=== PATIENT | female | born 1980 | race Two or more races ===

== ENCOUNTER → 2016-06-27 | Outpatient (CLI) | payer MEDICAID | LOC: FIMAGING 13:49 | DX: N63 Unspecified lump in breast (principal) ==

== ENCOUNTER 2016-12-28 04:23 | Observation (INO) | payer MEDICAID ==
--- NOTE | 2016-12-28 07:09 | SOAPPROG ---
SOAP Progress Note Assessment/Plan: Assessment: IUP at 32 + wks LOF, and decreased FM Plan: Reactive NST and amnisure neg, feeling GFM at hosp 12/28/16 07:05 Subjective: Pt feeling better mvmt while here at [facility]. Pt has ant placenta Objective: VSS Afeb FHTs reactive with baseline 130s, good variability with accels, no decels amnisure negative ICD10 Worksheet Patient Problems: Problems Problem Status Onset Decreased movement Acute No leakage of amniotic fluid into vagina Acute - ICD10 Problem Qualifiers (1) Decreased movement (2) No leakage of amniotic fluid into vagina
== END 2016-12-28 05:20 | disposition home or self-care (01) ==
LOC: FLD 04:23
PROVIDERS: ADMIT Obstetrics & Gynecology; ATTEND Obstetrics & Gynecology
DX: O41.93X0 Disorder of amniotic fluid and membranes, unspecified, third trimester, not applicable or unspecified (principal); O36.8130 Decreased fetal movements, third trimester, not applicable or unspecified; Z3A.32 32 weeks gestation of pregnancy

== ENCOUNTER 2017-01-02 20:52 | Observation (INO) | payer MEDICAID | END 2017-01-02 22:45 | disposition home or self-care (01) | LOC: FLD 20:52 | PROVIDERS: ADMIT Obstetrics & Gynecology; ATTEND Obstetrics & Gynecology | DX: O99.89 Other specified diseases and conditions complicating pregnancy, childbirth and the puerperium (principal); Z3A.33 33 weeks gestation of pregnancy | CPT/HCPCS: 59025; G0378 ==

== ENCOUNTER 2017-02-17 06:00 | Inpatient (IN) | payer MEDICAID ==
[2017-02-18] MEDS ORDERED: OLIVE OIL 118 ML BTL MISC PRN (06:12)
[2017-02-18] MEDS ORDERED: TERBUTALINE SULFATE 1 MG/ML VIAL IV PRN (06:12)
[2017-02-18] MEDS ORDERED: LR 1,000 ML IV PRN (06:12)
[2017-02-18] MEDS ORDERED: OXYTOCIN 20 UNIT in LR 1,000 ML IV PRN (06:12)
[2017-02-18] MEDS ORDERED: EPSOM SALT 454 GM TP PRN (06:12)
[2017-02-18 07:17] LABS: % IMMATURE GRANULYOCYTES 0.3 % (0.0-1.1); ABSOLUTE IMMATURE GRANULOCYTES 0.02 10^3/uL (0.00-0.10); ADD DIFF? NO; ADD MORPH? NO; ADD SCAN? NO; ATYPICAL LYMPHOCYTE FLAG 10 (0-99); FRAGMENT RBC FLAG 0 (0-99); HEMATOCRIT 40.9 % (38.0-47.0); HEMOGLOBIN 14.7 g/dL (12.6-16.3); LEFT SHIFT FLG 0 (0-99); LIPEMIA HEMOLYSIS FLAG 90 (0-99); MEAN CELL HEMOGLOBIN 31.5 pg (27.9-34.1); MEAN CELL HEMOGLOBIN CONCENTR. 35.9 g/dL (32.4-36.7); MEAN CELL VOLUME 87.8 fL (81.5-99.8); MEAN PLATELET VOLUME 11.6 fL (8.7-11.7); PLATELET CLUMPS FLAG 0 (0-99); PLATELET COUNT 125 10^3/uL (150-400); RED BLOOD CELL COUNT 4.66 10^6/uL (4.18-5.33); RED CELL DISTRIBUTION WIDTH 13.3 % (11.5-15.2)
[2017-02-18] MEDS: AMPICILLIN SODIUM 1 GM in NS 50 ML IV SCH ×5 (08:08→23:35)
[2017-02-18] MEDS ORDERED: LR 500 ML IV PRN (09:18)
[2017-02-18] MEDS ORDERED: OXYTOCIN 30 UNIT in NS 500 ML IV SCH (09:30)
--- NOTE | 2017-02-18 11:04 | GHP ---
[f rep st] PREOP HISTORY AND PHYSICAL DATE OF ADMISSION: 02/18/2017 Admission to the obstetric service. HISTORY UPON ADMISSION: The patient is a 36-year-old, , with estimated due date of 02/19/2017, who presents at 39 weeks and 6 days for induction of labor electively. The patient has only infreque ntly had Potter Aguiar contractions and bag of water is intact. The patient has not had any bleeding . The patient's cervical exam last week was 2-3 cm dilated and 75% effaced. The patient desires zayda ctive induction. The patient has positive GBS status, and the 1st dose of antibiotics has already be en infused. CARE: The patient has been followed with [facility] since 8 weeks' gestation. T he patient conceived by IVF after a history of a tubal ligation after her 4th child in 200 7. The patient had the usual 1st trimester medications from the maternal specialist. She tape red off these all normally. The patient did have a subchorionic bleed noted on ultrasound, that spon taneously resolved. She had bleeding from the 8th through the 14th week. The patient's initial linda jayla ultrasound was normal at 20 weeks, and she had a recheck of growth ultrasound in the 3rd trimeste r, which was normal. The patient had an echocardiogram due to her IVF history; the first 1 showed jacob boptimal views of the outlet vessels, and she had a repeat echo that was normal. LABORATORY DATA: Include maternal blood type: O positive, with negative antibody screen. RPR nonreactive. Rubella immune. Hepatitis B surface antigen negative. HIV negative. The patient had hepatitis C testing, and this was negative. The patient declined triple screen testing. Negativ e urine culture. The patient declined a Pap smear with this , as she had a Pap smear back i n July that was normal except for no ECC's. The patient had Verifi testing that was normal and negati ve MSAFP. 1-hour Glucola was normal. Hematocrit 40% in mid . GBS culture was positive. 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 She had surgery to correct this in 2014, and the aneurysm was embolized. This was h er right kidney. 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 Negative Pap smear since 2009. The patient had mild cellulitis after the tubal ligation, treated with Keflex. She had a history of retained placenta after her 3rd child. PAST SURGICAL HISTORY: Breast implants in 2004, a D and C after retained placenta in 2002, postpartu m tubal ligation in 2006, and renal artery aneurysm embolization of her right kidney in 2014. PAST OBSTETRIC HISTORY: In 1998, a female delivered at term vaginally with no complications. In Jun, a male delivered at term with no complications. In 2002, a female delivered at term vaginal ly with an epidural. The patient had to have a D and C due to retained placenta. In 2006 , a male delivered at term, uncomplicated, and had a tubal ligation. ALLERGIES: The patient has no known drug allergies. CURRENT MEDICATIONS: vitamins. SOCIAL HISTORY: The patient is , lives with her . The patient is a nonsmoker. No alc ohol or drug use. REVIEW OF SYSTEMS: A 10-point review of systems performed with the pertinent positives and negatives noted above. PHYSICAL EXAMINATION: GENERAL: Upon admission, the patient is a well-developed, well-nourished Hispa khushi female in no physical distress. VITAL SIGNS: Afebrile with normal vital signs; see nursing docu mentation for full details. heart tone monitoring revealed a category 1 tracing with a baselin e in the 140s with moderate variability and accelerations. Only infrequent contractions noted at thi s point. PELVIC: Exam is deferred as a recent exam shows a favorable cervix, 2-3 cm dilated at 75% effaced. EXTREMITIES: Nontender and no edema. ASSESSMENT: 1. Intrauterine at 39 weeks and 6 days for elective induction. Pitocin is getting started . 2. Positive GBS, and the patient has received her 1st dose of antibiotics. 3. History of in vitro fertilization with normal echo. 4. History of a renal artery aneurysm that was repaired in 2014. PLAN: Increase Pitocin and we will AROM after the 2nd dose of antibiotics. /[id number]/MODL
[2017-02-18] MEDS ORDERED: AMMONIA AROMATIC 1 EACH AMP IH ONE (11:13)
[2017-02-18] MEDS ORDERED: LIDOCAINE 1% 300 MG/30 ML SDV ONE (11:13)
[2017-02-18] MEDS ORDERED: OLIVE OIL 118 ML BTL ONE (11:13)
[2017-02-18] MEDS ORDERED: OXYTOCIN 10 UNIT/ML VIAL ONE (11:14)
[2017-02-18] MEDS ORDERED: MISOPROSTOL 200 MCG TAB ONE (11:14)
[2017-02-18] MEDS ORDERED: AMPICILLIN SODIUM 1 GM in NS 50 ML IV SCH (11:27)
--- NOTE | 2017-02-18 14:25 | OBPROG ---
Labor Progress Note Assessment/Plan: Assessment: IUP at 39 + wks, elective indxn on Pitocin, mild ctxns +GBS now had 2 doses abx Plan: AROM 02/18/17 14:23 Subjective/Intrapartum Course: 02/18/17 14:24 Pt shirlene ctxns well. exam 380/-2, AROM, clear, on 12 of pit Objective: 02/18/17 06:50 Patient ABO/Rh O POSITIVE 02/18/17 06:50 - SVE Dilation (cm): 3 Effacement (%): 80 Station: -2 Membranes: AROM Amniotic Fluid Color: Clear - Contraction Pattern Assessment Current Contraction Pattern: Regular (q 3-4) - FHR Assessment Clay FHR (bpm): 130 FHR Pattern Variability: Moderate FHR Category: 1 - Procedures Non-surgical Procedures: Amniotomy Oxytocin Orders Assessment - Pre-Induction/Augmentation Assessment Gestational Age: 39 week(s) and 6 day(s) ICD10 Worksheet Patient Problems: Problems Problem Status Onset Elective induction of labor planned Acute Decreased movement Acute No leakage of amniotic fluid into vagina Acute - ICD10 Problem Qualifiers (1) Elective induction of labor planned
--- NOTE | 2017-02-18 16:18 | OBPROG ---
Labor Progress Note Assessment/Plan: Assessment: IUP at 39 + wks, elective indxn on Pitocin, intense ctxns now for 1 hour +GBS, getting 3rd dose abx Plan: using nitrous without much help, frustrated not more dilated 02/18/17 14:23 02/18/17 16:14 Subjective/Intrapartum Course: 02/18/17 14:24 Pt shirlene ctxns well. exam 380/-2, AROM, clear, on 12 of pit 02/18/17 16:16 pt with intense ctxns for last hour, really frustrated cx is 390/-1, clear fluid. trying nitrous - no help. offered ANDREW Objective: 02/18/17 06:50 Patient ABO/Rh O POSITIVE 02/18/17 06:50 - SVE Dilation (cm): 3 Effacement (%): 90 Station: -1 Membranes: AROM Amniotic Fluid Color: Clear - Contraction Pattern Assessment Current Contraction Pattern: Regular (q 2-3 min on pit 12) - FHR Assessment Clay FHR (bpm): 140 FHR Pattern Variability: Moderate FHR Category: 1 - Procedures Non-surgical Procedures: Amniotomy Oxytocin Orders Assessment - Pre-Induction/Augmentation Assessment Gestational Age: 39 week(s) and 6 day(s) ICD10 Worksheet Patient Problems: Problems Problem Status Onset Elective induction of labor planned Acute - ICD10 Problem Qualifiers (1) Elective induction of labor planned
[2017-02-18] MEDS ORDERED: fentaNYL 2MCG/ML/BUP 0.1% RTU 100 ML BAG EP ONE (16:44)
[2017-02-18] MEDS ORDERED: BUPIVACAINE 0.25% 30 ML SDV ONE (16:44)
[2017-02-18] MEDS ORDERED: fentaNYL 100 MCG/2 ML INJ ONE (16:44)
[2017-02-18] MEDS ORDERED: PHENYLEPHRINE HCL 100 MCG/ML SYR ONE (16:46)
[2017-02-18] MEDS ORDERED: NALOXONE HCL 0.4 MG/ML INJ IVP PRN (17:22)
[2017-02-18] MEDS ORDERED: ONDANSETRON 4 MG/2 ML VIAL IVP PRN (17:22)
[2017-02-18] MEDS ORDERED: PHENYLEPHRINE HCL 100 MCG/ML SYR IVP PRN (17:22)
--- NOTE | 2017-02-18 17:22 | PREANESOB ---
Obstetric Pre-Anesthesia Info - General Info Proposed Procedure: cse : 5 Para: 4 NAILA: 02/19/17 Gestational Age: 39 week(s) and 6 day(s) - Info Status: Full Term - Labor Status Cervical Dilation per last OB SVE: 3 Station per last OB SVE: -1 Rupture of Membranes Date: 02/18/17 Rupture of Membranes Time: 13:29 Amniotic Fluid Color: Clear PIH: No Indications for Labor Analgesia: Pain Control Labor Epidural: Yes Anesthesia Allergies/Adverse Reactions: Allergy/AdvReac Type Severity Reaction Status Date / Time No Known Allergies Allergy Verified 02/18/17 12:02 Home Medications: Medication Instructions Recorded 1 tab PO DAILY 01/02/17 Visit Medications: Generic Name Dose Route Start Last Admin Trade Name Venus PRN Reason Stop Dose Admin Lactated Ringer's 1,000 mls @ 0 mls/hr 02/18/17 06:12 Lr IV 02/19/17 06:11 PRN PRN SEE PROTOCOL CONDITIONS Protocol Per Protocol Oxytocin 20 unit/ Lactated 1,002 mls @ 150 mls/hr 02/18/17 06:12 Ringer's IV PRN PRN Post- bleeding Ampicillin Sodium 1 gm/ Sodium 50 mls @ 100 mls/hr 02/18/17 12:00 02/18/17 12 :07 Chloride IV 03/20/17 11:59 50 mls Q4H STEPH Administration Lactated Ringer's 500 mls @ 500 mls/hr 02/18/17 09:18 Lr IV 02/19/17 09:19 PRN PRN Maternal Hypotension Oxytocin 30 unit/ Sodium 503 mls @ 0 mls/hr 02/18/17 09:30 02/18/17 09:35 Chloride IV 08/17/17 09:29 503 mls CONT STEPH Administration Protocol Per Protocol Ibuprofen 600 mg 02/18/17 06:12 Motrin PO 08/17/17 06:11 Q6HRS PRN post , inflammation Magnesium Sulfate 454 gm 02/18/17 06:12 Epsom Salt TP 08/17/17 06:11 Q1H PRN perineal discomfort [place] Oil 118 ml 02/18/17 06:12 Sweet Oil MISC 08/17/17 06:11 ONCE PRN perineal massage Terbutaline Sulfate 0.25 mg 02/18/17 06:12 Brethine IV 08/17/17 06:11 ONCE PRN Tachysystole Discontinued Medications Generic Name Dose Route Start Last Admin Trade Name Venus PRN Reason Stop Dose Admin Ammonia (Aromatic Spirit) Confirm 02/18/17 11:13 Ammonia Aromatic Administered 02/18/17 11:14 Dose 1 each IH .STK-MED ONE Bupivacaine HCl Confirm 02/18/17 16:44 Sensorcaine 0.25% Sdv Administered 02/18/17 16:45 Dose 30 ml .ROUTE .STK-MED ONE Fentanyl Confirm 02/18/17 16:44 Sublimaze Administered 02/18/17 16:45 Dose 100 mcg .ROUTE .STK-MED ONE Fentanyl/Bupivacaine HCl Confirm 02/18/17 16:44 Fentanyl/Bupivacaine/Ns 2 Mcg/Ml 0.1% (Premix Administered 02/18/17 16:45 Dose 100 ml EP .STK-MED ONE Ampicillin Sodium 1 gm/ Sodium 50 mls @ 100 mls/hr 02/18/17 07:30 02/18/17 08 :23 Chloride IV 02/18/17 08:29 50 mls Q30M STEPH Administration Protocol Lidocaine HCl Confirm 02/18/17 11:13 Lidocaine Hcl 1% Administered 02/18/17 11:14 Dose 300 mg .ROUTE .STK-MED ONE Misoprostol Confirm 02/18/17 11:14 Cytotec Administered 02/18/17 11:15 Dose 1,000 mcg .ROUTE .STK-MED ONE [place] Oil Confirm 02/18/17 11:13 Sweet Oil Administered 02/18/17 11:14 Dose 118 ml .ROUTE .STK-MED ONE Oxytocin Confirm 02/18/17 11:14 Pitocin Administered 02/18/17 11:15 Dose 40 unit .ROUTE .STK-MED ONE Phenylephrine HCl Confirm 02/18/17 16:46 Neosynephrine Administered 02/18/17 16:47 Dose 1,000 mcg .ROUTE .STK-MED ONE - Anesthesia History Response to Local Anesthetics: Not Applicable - Social History Substance Use/Abuse: Denies - Vital Signs Height/Weight (Nursing): Height 154.94 cm Weight 68.039 kg - Focused Exam Mallampati Score: Class 2 Mouth exam: normal dental/mouth exam Pulmonary: no respiratory distress Cardiovascular: regular rate and rhythym Labs: 02/18/17 06:50 Patient ABO/Rh O POSITIVE 02/18/17 06:50 - Plan Consent Signed and on Chart: Yes Patient/Guardian Understands and Agrees to Plan: Yes Urgent/Emergent Case: Shirley burk completed preop but documented later for safe timely pt care
[2017-02-18] MEDS ORDERED: fentaNYL 2MCG/ML/BUP 0.1% RTU 100 ML EP SCH (17:30)
[2017-02-18] MEDS ORDERED: LR 500 ML IV SCH (17:30)
--- NOTE | 2017-02-18 21:08 | OBDEL ---
Info Type: Vaginal Presentation at Delivery: Vertex L&D Analgesia/Anesthesia Type: Epidural GBS+: Yes Antibiotic Used for + GBS: Ampicillin Intrapartum Medications: Generic Name Dose Route Start Last Admin Trade Name Freq PRN Reason Stop Dose Admin Ampicillin Sodium 1 gm/ Sodium 50 mls @ 100 mls/hr 02/18/17 12:00 02/18/17 17 :51 Chloride IV 03/20/17 11:59 50 mls Q4H STEPH Administration Oxytocin 30 unit/ Sodium 503 mls @ 0 mls/hr 02/18/17 09:30 02/18/17 09:35 Chloride IV 08/17/17 09:29 503 mls CONT STEPH Administration Protocol Per Protocol Discontinued Medications Generic Name Dose Route Start Last Admin Trade Name Freq PRN Reason Stop Dose Admin Ampicillin Sodium 1 gm/ Sodium 50 mls @ 100 mls/hr 02/18/17 07:30 02/18/17 08 :23 Chloride IV 02/18/17 08:29 50 mls Q30M STEPH Administration Protocol - Hospital Course Intrapartum: 02/18/17 14:24 Pt shirlene ctxns well. exam 3/80/-2, AROM, clear, on 12 of pit 02/18/17 16:16 pt with intense ctxns for last hour, really frustrated cx is 3/90/-1, clear fluid. trying nitrous - no help. offered ANDREW Indications for Delivery: Elective Vaginal Delivery - Delivery Provider Delivery Physician/CNM: Kia Langley - Labor and Delivery Onset of Contractions Date: 02/18/17 Onset of Contractions Time: 11:00 Onset of Contractions Type: Induced Rupture of Membranes Date: 02/18/17 Rupture of Membranes Time: 13:29 Rupture of Membranes Type: Artificial Amniotic Fluid Color: Clear Dilation Complete Date: 02/18/17 Dilation Complete Time: 18:22 Placenta Delivery Date: 02/18/17 Placenta Delivery Time: 19:24 Total Hours of Labor: 8 Non-surgical Procedures: Amniotomy Vaginal Sponge Count Correct: Yes Vaginal Needle Count Correct: Yes Vaginal Sweep Performed: Yes EBL: 500 Delivery Events: None - Medications Labor Augmentation/Induction Methods Used: Pitocin Labor Augmentation/Induction Indication: Elective Data Clay Delivery Date: 02/18/17 Delivery Time: 19:12 NAILA: 02/19/17 Gestational Age: 39 week(s) and 6 day(s) Sex of : Male Score (1 Min): 8 Score (5 Min): 9 ICD10 Worksheet Patient Problems: Problems Problem Status Onset (spontaneous vaginal delivery) Acute - ICD10 Problem Qualifiers (1) Elective induction of labor planned
[2017-02-18] MEDS: IBUPROFEN 600 MG TAB PO PRN (21:45)
[2017-02-18 22:08] VITALS: RESP 16
[2017-02-19] MEDS: AMPICILLIN SODIUM 1 GM in NS 50 ML IV SCH (01:06)
[2017-02-19] MEDS: IBUPROFEN 600 MG TAB PO PRN ×4 (04:17→23:20)
[2017-02-19] MEDS: DOCUSATE SODIUM 100 MG CAP PO PRN (08:49)
[2017-02-19] MEDS: ACETAMINOPHEN 325 MG TAB PO PRN ×3 (08:49→20:09)
--- NOTE | 2017-02-19 13:02 | OBPP ---
Progress Note Assessment/Plan: Assessment: [id number] s/p PPD#1 Plan: routine pp care cont plan to d/c home tomorrow 02/19/17 13:00 Subjective/ Course: 02/19/17 13:00 Pt doing well, she reports feeling good. She denies any pain. She reports minimal bleeding. She is . She is ambulating and voiding without difficulty. Objective: 02/19/17 04:20 Patient ABO/Rh O POSITIVE 02/18/17 06:50 Temp Pulse Resp BP Pulse Ox 36.0 C 78 16 107/67 96 02/19/17 09:10 02/19/17 09:10 02/19/17 09:10 02/19/17 09:10 02/19/17 09:10 Uterine Position/Fundal Height: At Umbilicus, Midline Uterine Tone: Firm Physical Exam - Physical Exam EENT: PERRL/EOMI Neck: supple Respiratory: lungs clear, normal breath sounds Cardiac/Chest: regular rate, rhythm Abdomen: non-tender, soft Extremities: normal inspection Skin: normal color, warm/dry Neuro/Psych: alert, normal mood/affect, oriented x 3
[2017-02-20] MEDS: ACETAMINOPHEN 325 MG TAB PO PRN (03:01)
[2017-02-20] MEDS: IBUPROFEN 600 MG TAB PO PRN ×2 (05:11→11:38)
[2017-02-20 08:24] VITALS: BP 108/76; PULSE 68; TEMP 98.3; O2SAT 98
--- NOTE | 2017-02-20 09:16 | OBPP ---
Progress Note Assessment/Plan: Assessment: Post day 2 Stable afebrile Ambulating and tolerating diet Ready to discharge home Plan: Discharge home Return precautions given Ibuprofen and stool softeners two week wellness check 02/20/17 09:09 Subjective/ Course: 02/19/17 13:00 Pt doing well, she reports feeling good. She denies any pain. She reports minimal bleeding. She is . She is ambulating and voiding without difficulty. 02/20/17 09:11 Ambulating tolerating diet, voiding and flatus. Tolerating pain well and min lochia patient ready to go home 02/20/17 09:16 Objective: 02/19/17 04:20 Patient ABO/Rh O POSITIVE 02/18/17 06:50 Temp Pulse Resp BP Pulse Ox 36.8 C 68 16 108/76 98 02/20/17 08:00 02/20/17 08:00 02/20/17 08:00 02/20/17 08:00 02/20/17 08:00 Uterine Position/Fundal Height: Umbilicus -3 Uterine Tone: Firm Physical Exam - Physical Exam Respiratory: chest non-tender Cardiac/Chest: normal peripheral pulses, edema Abdomen: normal bowel sounds, non-tender, soft Skin: normal color, warm/dry Neuro/Psych: no motor/sensory deficits, alert, normal mood/affect, oriented x 3
--- NOTE | 2017-02-20 09:19 | OBGCSDC ---
General Delivery Information - General Info : 5 Para: 5 Abortions: 0 Type: Vaginal L&D Analgesia/Anesthesia Type: Epidural Admission Date: 02/18/17 Labs: Patient ABO/Rh O POSITIVE 02/18/17 06:50 Hct 35.0 % (38.0-47.0) L 02/19/17 04:20 - Hospital Course Intrapartum: 02/18/17 14:24 Pt shirlene ctxns well. exam 3/80/-2, AROM, clear, on 12 of pit 02/18/17 16:16 pt with intense ctxns for last hour, really frustrated cx is 3/90/-1, clear fluid. trying nitrous - no help. offered ANDREW : 02/19/17 13:00 Pt doing well, she reports feeling good. She denies any pain. She reports minimal bleeding. She is . She is ambulating and voiding without difficulty. 02/20/17 09:11 Ambulating tolerating diet, voiding and flatus. Tolerating pain well and min lochia patient ready to go home 02/20/17 09:16 Vaginal - Delivery Provider Delivery Physician/CNM: Kia Langley - Diagnosis Labor: Induced Rupture of Membranes Type: Artificial Amniotic Fluid Color: Clear Delivery Events: None - Procedures Non-surgical Procedures: Amniotomy - Delivery Non-surgical Procedures: Amniotomy EBL: [address] Data Clay Delivery Date: 02/18/17 Delivery Time: 19:12 NAILA: 02/19/17 Gestational Age: 40 week(s) and 1 day(s) Sex of : Male Weight (gm): 3540 kg Score (1 Min): 8 Score (5 Min): 9 Discharge Information - Discharge Information Prescriptions: Ibuprofen [Motrin (*)] 600 mg PO Q6HRS PRN #30 tab PRN Reason: post , inflammation Docusate Sodium [Colace 100 MG (*)] 100 mg PO BID PRN #30 cap PRN Reason: Constipation Condition: Good Instruction/Follow Up: Two Weeks
[2017-02-20] MEDS: DOCUSATE SODIUM 100 MG CAP PO PRN (10:56)
--- NOTE | 2017-02-25 07:05 | POSTANESTH ---
Post Anesthetic Evaluation Cardiovascular Status: Normal, Stable Respiratory Status: Normal, Stable Level of Consciousness/Mental Status: Can Participate in Eval Pain Control: Adequate, Prn Tx Ordered Nausea/Vomiting Control: Adequate, Prn Tx Ordered Complications Possibly Related to Anesthesia: None Noted
== END 2017-02-20 15:45 | disposition home or self-care (01) | DRG 775 ==
LOC: FLD 02-18 06:04 → FOB 02-18 21:13
PROVIDERS: ADMIT Obstetrics & Gynecology; ATTEND Obstetrics & Gynecology
PROC: 10907ZC Drainage of Amniotic Fluid, Therapeutic from Products of Conception, Via Natural or Artificial Opening (ICD-10-PCS; principal; 2017-02-18)
PROC: 10E0XZZ Delivery of Products of Conception, External Approach (ICD-10-PCS; principal; 2017-02-18)
PROC: 3E033VJ Introduction of Other Hormone into Peripheral Vein, Percutaneous Approach (ICD-10-PCS; principal; 2017-02-18)
DX: O99.824 Streptococcus B carrier state complicating childbirth (principal); Z37.0 Single live birth; Z3A.39 39 weeks gestation of pregnancy
CPT/HCPCS: J0290; J2370; J3010

== ENCOUNTER 2017-08-16 13:20 | Emergency (ER) | payer MEDICAID ==
--- NOTE | 2017-08-16 14:52 | EDPHY ---
H & P Stated Complaint: abd pain Time Seen by Provider: 08/16/17 14:38 HPI/ROS: CHIEF COMPLAINT: Left lower quadrant abdominal pain x1 month HISTORY OF PRESENT ILLNESS: 36-year-old female via private vehicle complaining of left lower quadrant pain for the past 1 month worse in the evening saw her primary care provider few days ago told that she was more than likely constipated given prescription for Metamucil. Describes her bowel movements as small hard pellets stool. Denies: Melena, hematochezia, back or flank pain, urinary abnormality, menstrual bleeding or discharge, nausea, vomiting, fever, chills, trauma PRIMARY CARE PROVIDER: REVIEW OF SYSTEMS: A ten point review of systems was performed and is negative with the exception of the items mentioned in the HPI PAST MEDICAL & SURGICAL HISTORY: No history of abdominal surgery SOCIAL HISTORY: Nonsmoker PHYSICAL EXAM (Prior to examination, patient consented to physical exam, hands were washed and my usual and customary physical exam procedures followed) 1) GENERAL: Well-developed, well-nourished, alert and oriented. Appears to be in no acute distress. 2) HEAD: Normocephalic, atraumatic 3) HEENT: Pupils equal, round, reactive to light bilaterally. Sclera anicteric. Nasopharynx, oropharynx, clear, no lesions. 4) NECK: Full range of motion, no meningeal signs. 5) LUNGS: Clear auscultation bilaterally, no wheezes, no rhonchi, no retractions. 6) HEART: Regular rate and rhythm, no murmur, no heave, no gallop. 7) ABDOMEN: No guarding, no rebound, no focal tenderness, negative McBurney's, negative Hussein's, negative Rovsing's, negative peritoneal sign, unable to elicit abdominal pain on exam 8) MUSCULOSKELETAL: Moving all extremities, no focal areas of tenderness, no obvious trauma. No peripheral edema or discoloration. 9) BACK: No CVA tenderness, no midline vertebral tenderness, no fluctuance, no step-off, no obvious trauma, no visual or palpable abnormality. 10) SKIN: No rash, no petechiae. 11) Psychiatric: Patient is oriented X 3, there is no agitation. DIFFERENTIAL DIAGNOSIS: My differential diagnosis includes, but is not limited to, acute appendicitis, acute diverticulitis, acute cholecystitis, bowel obstruction, acute pancreatitis, ovarian torsion, ectopic , gastritis and urinary tract infection. The patient understands that this diagnosis is provisional and can never be 100% accurate. This is a partial list of diagnoses considered. These considerations are based on history, physical exam, past history and reassessment. - Personal History LMP (Females 10-55): Over 28 Days Ago Current Tetanus/Diphtheria Vaccine: Unsure Current Tetanus Diphtheria and Acellular Pertussis (TDAP): Unsure - Medical/Surgical History Hx Asthma: No Hx Chronic Respiratory Disease: No Hx Diabetes: No Hx Cardiac Disease: No Hx Renal Disease: Yes Hx Cirrhosis: No Hx Alcoholism: No Hx HIV/AIDS: No Hx Splenectomy or Spleen Trauma: No Other PMH: kidney aneurysm coil sugery 01/03, MIGRAINES, PPTL 2006, this is IVF - Social History Smoking Status: Former smoker Constitutional: Initial Vital Signs Temperature (C) 36.7 C 08/16/17 13:28 Heart Rate 58 L 08/16/17 13:28 Respiratory Rate 16 08/16/17 13:28 Blood Pressure 133/68 H 08/16/17 13:28 O2 Sat (%) 98 08/16/17 13:28 O2 Delivery Mode Room Air Allergies/Adverse Reactions: No Known Allergies Allergy (Verified 08/16/17 13:27) Home Medications: Medication Instructions Recorded Peg 3350/Na Sulf,Bicarb,Cl/KCl 1,000 ml PO ONCE #4000 ml 08/16/17 [Golytely (RX)] Medical Decision Making - Diagnostics Imaging Results: Imaging Impressions Abdomen X-Ray 08/16/17 14:50 Impression: 1. Normal bowel gas pattern. Pelvic/Renal Ultrasound 08/16/17 14:50 Impression: Normal ultrasound pelvis. Results called to Carroll Callaway PA-C, at 3:35 PM Images reviewed myself ED Course/Re-evaluation: 2:52 p.m.: Complaining of localized left lower quadrant pain. Doubt acute diverticulitis. Will obtain pelvic ultrasonography. She describes multiple hard pellet-like stools. Described more than likely constipation. Will obtain KUB x-ray. Urinalysis is negative for pyuria bacteriuria, negative for . Doubt ectopic . I saw this patient independently based on established practice protocols. Care of patient under supervision of secondary supervising physician Dr Gulshan Dickerson 3:50 p.m.: The patient was re-evaluated with serial examinations. I discussed her imaging results. I re-examined her abdomen which is soft no guarding no rebound. Specifically no McBurney's point pain, negative Hussein's, negative peritoneal sign, negative left lower quadrant pain. I am unable to elicit any abdominal pain on exam. We discussed possible etiologies for symptoms including , but not limited to, transient ovarian torsion, diverticulitis. At this time she has no evidence of ovarian torsion on ultrasound. Doubt diverticulitis absence of fever, localized pain, nausea, vomiting, diarrhea. Discussed possibility of constipation as she describes recurrent heart small pellets of stool. Doubt bowel obstruction. I do not think that further diagnostic studies are indicated at this time. Doubt acute surgical abdominal pathology. We discussed increasing fluid and fiber intake, prescribed the patient GoLYTELY. She feels comfortable being discharged. Usual and customary discharge precautions instructions provided. - Data Points Laboratory Results: 08/16/17 08/16/17 13:30 13:30 Urine Color PALE YELLOW Urine Appearance CLEAR Urine pH 6.0 (5.0-7.5) Ur Specific [place] 1.005 (1.002-1.030) Urine Protein NEGATIVE (NEGATIVE) Urine Ketones 1+ H (NEGATIVE) Urine Blood NEGATIVE (NEGATIVE) Urine Nitrate NEGATIVE (NEGATIVE) Urine Bilirubin NEGATIVE (NEGATIVE) Urine Urobilinogen NEGATIVE EU EU (0.2-1.0) Ur Leukocyte Esterase NEGATIVE (NEGATIVE) Urine Glucose NEGATIVE (NEGATIVE) Urine Test NEGATIVE Departure - Departure Disposition: Home, Routine, Self-Care Clinical Impression: Abdominal pain Qualifiers: Abdominal location: left upper quadrant Qualified Code(s): R10.12 - Left upper quadrant pain Condition: Good Instructions: Abdominal Pain (ED) Additional Instructions: Seek immediate medical attention if you develop new or worsening symptoms, if you develop fevers, chills, inability to tolerate oral intake or any other symptoms that concerns you. Increase your fluid and fiber intake. Referrals: Gayatri Paige, PAC [Primary Care Provider] - 1-2 days without fail Prescriptions: Peg 3350/Na Sulf,Bicarb,Cl/KCl [Golytely (RX)] 1,000 ml PO ONCE #4000 ml
[2017-08-16 16:02] VITALS: BP 126/78
== END 2017-08-16 16:02 | disposition home or self-care (01) ==
DX: R10.12 Left upper quadrant pain (principal); Z87.891 Personal history of nicotine dependence